=== PATIENT | female | born 1995 | race Caucasian/White ===

== ENCOUNTER 2017-08-22 09:31 | Emergency (ER) | payer OTHER ==
[2017-08-22] MEDS ORDERED: ACETAMINOPHEN TAB 500 MG TAB PO STA (10:32)
[2017-08-22] MEDS ORDERED: ONDANSETRON 4 MG ODT STARTER PACK 2 TAB BTL PO STA (10:32)
--- NOTE | 2017-08-22 10:49 | ED ---
URI HPI - General Chief Complaint: Upper Respiratory Infection Stated Complaint: Cough and SOB Time Seen by Provider: 08/22/17 09:59 Source: patient, RN notes reviewed, old records reviewed Mode of arrival: ambulatory Limitations: no limitations - History of Present Illness Initial Comments: This is a 21 -year-old female presents emergency room today chief complaint of cough, upper respiratory congestion and sore throat. Patient reports that the symptoms started approximately 4 days ago. Started with upper respiratory cold and she feels like now she is having a significant cough and some black tinged sputum. She is a smoker. Smokes packs proximally pack a day. Patient denies any nausea vomiting or abdominal pain. Denies any recent Motrin or Tylenol but she does come in with fever 101. She reports diffuse body aches. She did not receive the flu vaccine. - Related Data Previous Rx's Medication Instructions Recorded Acetaminophen Tab [Tylenol Tab] 650 mg PO Q6H #20 tablet 08/22/17 Azithromycin [Zithromax Z-pack] 250 mg PO DIRECTED #6 tab 08/22/17 Benzonatate [Tessalon Perles] 100 mg PO TID PRN #12 capsule 08/22/17 Allergies Allergy/AdvReac Type Severity Reaction Status Date / Time aspirin Allergy Unknown Verified 08/22/17 09:47 ibuprofen [From Advil] Allergy Unknown Verified 08/22/17 09:47 Review of Systems ROS Statement: Those systems with pertinent positive or pertinent negative responses have been documented in the HPI. ROS Other: All systems not noted in ROS Statement are negative. Past Medical History Past Medical History: No Reported History History of Any Multi-Drug Resistant Organisms: None Reported Past Surgical History: No Surgical Hx Reported Past Psychological History: No Psychological Hx Reported Smoking Status: Former smoker Past Alcohol Use History: None Reported Past Drug Use History: Marijuana General Exam - General Exam Comments Initial Comments: This is a 21-year-old female. No acute distress. Limitations: no limitations General appearance: alert, in no apparent distress Head exam: Present: atraumatic, normocephalic, normal inspection Eye exam: Present: normal appearance, PERRL, EOMI. Absent: scleral icterus, conjunctival injection, periorbital swelling ENT exam: Present: normal exam, mucous membranes moist Neck exam: Present: normal inspection. Absent: tenderness, meningismus, lymphadenopathy Respiratory exam: Present: normal lung sounds bilaterally. Absent: respiratory distress, wheezes, rales, rhonchi, stridor Cardiovascular Exam: Present: regular rate, normal rhythm, normal heart sounds. Absent: systolic murmur, diastolic murmur, rubs, gallop, clicks GI/Abdominal exam: Present: soft, normal bowel sounds. Absent: distended, tenderness, guarding, rebound, rigid Extremities exam: Present: normal inspection, full ROM, normal capillary refill. Absent: tenderness, pedal edema, joint swelling, calf tenderness Back exam: Present: normal inspection Neurological exam: Present: alert, oriented X3, CN II-XII intact Psychiatric exam: Present: normal affect, normal mood Skin exam: Present: warm, dry, intact, normal color. Absent: rash Course Vital Signs 08/22/17 08/22/17 09:47 12:03 Temperature 101.1 F H 97.5 F L Pulse Rate 106 H 91 Respiratory 18 17 Rate Blood Pressure 107/64 114/65 O2 Sat by Pulse 100 99 Oximetry Medical Decision Making - Medical Decision Making He should presents with four days of [place] where congestion and cough. She rides with a fever of 101. She was given Motrin and Tylenol. Chest x-ray shows evidence of bronchitis. She's a saint your families or a variance. Significant cough is awesome noted. With the diagnosis of bronchitis on top of them phones I will put the patient on Azithromyosin. Discussed that she also has positive influenza B. Discussion needs to take Motrin and tylenol and cough syrup. All questions answered and return parameters discussed. - Lab Data Lab Results 08/22/17 Range/Units 10:55 Influenza Type A RNA Not Detected (Not Detectd) Influenza Type B (PCR) Detected H (Not Detectd) - Radiology Data Radiology results: report reviewed CXR shows evidence of bronchitis. Disposition Clinical Impression: Influenza B, Bronchitis Disposition: HOME SELF-CARE Condition: Good Instructions: Influenza (ED), Acute Bronchitis (ED) Additional Instructions: Patient needs to alternate Motrin and Tylenol every 4 hours. Patient should take the medication as prescribed. Follow-up with primary care physician. Return to emergency department if any alarming signs or symptoms occur. Prescriptions: Acetaminophen Tab [Tylenol Tab] 650 mg PO Q6H #20 tablet Azithromycin [Zithromax Z-pack] 250 mg PO DIRECTED #6 tab Benzonatate [Tessalon Perles] 100 mg PO TID PRN #12 capsule PRN Reason: Cough Referrals: None,Stated [Primary Care Provider] - 1-2 days Vidhi Snoi MD [STAFF PHYSICIAN] - 1-2 days Time of Disposition: 11:39
--- NOTE | 2017-08-22 11:30 | XR ---
EXAMINATION TYPE: XR chest 2V DATE OF EXAM: 08/22/2017 COMPARISON: NONE HISTORY: Cough, pain TECHNIQUE: Frontal and lateral views of the chest are obtained. FINDINGS: There is no focal air space opacity, pleural effusion, or pneumothorax seen. The cardiac silhouette size is within normal limits. Bronchial wall thickening noted. There is a spinal curvature , the appearance may be positional. Suspect there is a pectus deformity. The osseous structures are i ntact. IMPRESSION: Correlate for bronchitis, follow-up as indicated
[2017-08-22 12:03] VITALS: BP 114/65; PULSE 91; RESP 17; TEMP 97.5
== END 2017-08-22 12:07 | disposition home or self-care (01) ==
LOC: EC 09:31
DX: J10.1 Influenza due to other identified influenza virus with other respiratory manifestations (principal); J40 Bronchitis, not specified as acute or chronic; Z88.6 Allergy status to analgesic agent; F17.210 Nicotine dependence, cigarettes, uncomplicated
CPT/HCPCS: 99284; 87502; 71046; S0119

== ENCOUNTER 2018-04-05 11:21 | Emergency (ER) | payer OTHER ==
[2018-04-05 11:34] VITALS: BP 114/79; PULSE 92; RESP 16; TEMP 98.6
--- NOTE | 2018-04-05 11:53 | ED ---
Female Urogenital HPI - General Chief complaint: Urogenital Stated complaint: POSS UTI Time Seen by Provider: 04/05/18 11:37 Source: patient, RN notes reviewed Mode of arrival: ambulatory Limitations: no limitations - History of Present Illness Initial comments: This is a pleasant 22-year-old female presents emergency department complaining of burning urination, urinary urgency, she states that the symptoms were going out about one week. She has been using [id number] medications without relief. Patient denies any nausea or vomiting. No abdominal pain. No pelvic pain. No vaginal discharge. Patient does not know if she is although she does not think so. Patient denies any back pain. No skin rashes or lesions. Patient has had urinary tract infections in the past and believes this is a bladder infection. She states last time she had a bladder infection was a few years ago. Patient denies any hematuria. No pyuria. No chest pain or shortness of breath. No sore throat or earache. No other issues. Last Menstrual Period: 03/16/18 - Related Data Previous Rx's Medication Instructions Recorded Acetaminophen Tab [Tylenol Tab] 650 mg PO Q6H #20 tablet 08/22/17 Azithromycin [Zithromax Z-pack] 250 mg PO DIRECTED #6 tab 08/22/17 Benzonatate [Tessalon Perles] 100 mg PO TID PRN #12 capsule 08/22/17 Nitrofurantoin Monohyd/M-Cryst 100 mg PO Q12HR #14 cap 04/05/18 [Macrobid] Allergies Allergy/AdvReac Type Severity Reaction Status Date / Time aspirin Allergy Unknown Verified 04/05/18 11:34 ibuprofen [From Advil] Allergy Unknown Verified 04/05/18 11:34 Review of Systems ROS Statement: Those systems with pertinent positive or pertinent negative responses have been documented in the HPI. ROS Other: All systems not noted in ROS Statement are negative. Past Medical History Past Medical History: No Reported History Additional Past Medical History / Comment(s): Urinary tract infections History of Any Multi-Drug Resistant Organisms: None Reported Past Surgical History: No Surgical Hx Reported Past Psychological History: Anxiety Smoking Status: Current every day smoker Past Alcohol Use History: Occasional Past Drug Use History: Marijuana General Exam Limitations: no limitations General appearance: alert, in no apparent distress Head exam: Present: atraumatic, normocephalic, normal inspection Eye exam: Present: normal appearance, EOMI. Absent: scleral icterus, conjunctival injection, periorbital swelling ENT exam: Present: normal exam, mucous membranes moist Neck exam: Present: normal inspection, full ROM. Absent: tenderness, meningismus, lymphadenopathy Respiratory exam: Present: normal lung sounds bilaterally. Absent: respiratory distress, wheezes, rales, rhonchi, stridor Cardiovascular Exam: Present: regular rate, normal rhythm, normal heart sounds. Absent: systolic murmur, diastolic murmur, rubs, gallop, clicks GI/Abdominal exam: Present: soft, normal bowel sounds. Absent: distended, tenderness, guarding, rebound, rigid Extremities exam: Present: normal inspection, normal capillary refill Back exam: Present: normal inspection. Absent: CVA tenderness (R), CVA tenderness (L) Neurological exam: Present: alert, oriented X3 Psychiatric exam: Present: normal affect, normal mood Skin exam: Present: warm, dry, intact, normal color. Absent: rash Course Vital Signs 04/05/18 11:32 Temperature 98.6 F Pulse Rate 92 Respiratory 16 Rate Blood Pressure 114/79 O2 Sat by Pulse 97 Oximetry Medical Decision Making - Medical Decision Making Patient presents with symptoms consistent with acute cystitis. Patient be treated appropriately. Negative [place] successful be confirmed. Patient counseled on return and follow-up parameters. Patient counseled on treatment plan. Patient no she can return to the ER immediately if any problems or difficulties arise or if the symptoms worsen. Urinalysis findings consistent with urinary tract infection. Patient be treated appropriately. Macrobid prescribed. Educated on return and follow-up parameters - Lab Data Lab Results 04/05/18 04/05/18 Range/Units 11:00 11:00 Urine Color Dark Yellow Urine Appearance Cloudy H (Clear) Urine pH 7.5 (5.0-8.0) Ur Specific [place] 1.018 (1.001-1.035) Urine Protein 1+ H (Negative) Urine Glucose (UA) Negative (Negative) Urine Ketones Negative (Negative) Urine Blood Trace H (Negative) Urine Nitrite Positive H (Negative) Urine Bilirubin 1+ H (Negative) Urine Urobilinogen 3.0 (<2.0) mg/dL Ur Leukocyte Esterase Large H (Negative) Urine RBC 17 H (0-5) /hpf Urine WBC >182 H (0-5) /hpf Ur Squamous Epith Cells 7 H (0-4) /hpf Urine Bacteria Rare H (None) /hpf Urine Mucus Few H (None) /hpf Urine HCG, Qual Not Detected (Not Detectd) Disposition Clinical Impression: Urinary tract infection Disposition: HOME SELF-CARE Condition: Good Instructions: Urinary Tract Infection in Women (ED) Additional Instructions: Finish the antibiotic as directed. Return to the ER immediately if symptoms worsen or any other problems arise. Follow-up with regular physician as directed. Prescriptions: Nitrofurantoin Monohyd/M-Cryst [Macrobid] 100 mg PO Q12HR #14 cap Is patient prescribed a controlled substance at d/c from ED?: No Referrals: None,Stated [Primary Care Provider] - 1-2 days Time of Disposition: 12:17
[2018-04-05 12:03] LABS: Appearance,Urine Cloudy (Clear); Bacteria,Urine Rare /hpf; Bilirubin,Urine 1+ (Negative); Blood,Urine Trace (Negative); Color,Urine Dark Yellow; Glucose,Urine (UA) Negative (Negative); Ketones,Urine Negative (Negative); Leukocyte Esterase,Urine Large (Negative); Mucus,Urine Few /hpf; Nitrite,Urine Positive (Negative); PH, Urine 7.5 (5.0-8.0); Protein,Urine 1+ (Negative); RBC,Urine 17 /hpf (0-5); Specific Gravity,Urine 1.018 (1.001-1.035); Squamous Epithelial Cell,Urine 7 /hpf (0-4)
== END 2018-04-05 12:27 | disposition home or self-care (01) ==
LOC: EC 11:21
DX: N39.0 Urinary tract infection, site not specified (principal); F17.200 Nicotine dependence, unspecified, uncomplicated; Z88.6 Allergy status to analgesic agent
CPT/HCPCS: 81001; 81025; 87077; 87086; 87186; 99283